=== PATIENT | female | born 1950 | race African-American/Black ===

== ENCOUNTER 2024-08-15 14:02 | Emergency (ER) | payer MEDICAID, MEDICARE ==
[~2024-08-15] VITALS: Ht 175.3 cm; Wt 66.0 kg
[~2024-08-15 14:02] MED LIST: AMLO10TA80 PO; ATOR10TA69 PO; DIVA-75 PO; FERR-43 PO; FLUD0.1T PO; HYDR12.529 PO; LOSA50TA41 PO; METF-416 PO; METO-539 PO; MIRT-89 PO; MULT1TAB11 PO; OLAN10TA72 PO; TRAZ-251 PO; VENL75CA4 PO
[2024-08-15 14:23] VITALS: O2SAT 100
[2024-08-15] MEDS: ACETAMINOPHEN 325MG TABLET PO ONE (18:21)
[2024-08-15] MEDS ORDERED: ACET-2708 MT (19:09)
[2024-08-15 19:30] VITALS: BP 139/91; PULSE 93; RESP 16; TEMP 37; O2SAT 100
== END 2024-08-15 19:32 | disposition home or self-care (01) ==
LOC: ER 14:02
DX: S32.592A Other specified fracture of left pubis, initial encounter for closed fracture (principal); E11.9 Type 2 diabetes mellitus without complications; F20.9 Schizophrenia, unspecified; Z79.899 Other long term (current) drug therapy; X58.XXXA Exposure to other specified factors, initial encounter; Y93.89 Activity, other specified; Y92.89 Other specified places as the place of occurrence of the external cause; Y99.8 Other external cause status
CPT/HCPCS: 73502; 99283